=== PATIENT | male | born 1980 ===

== ENCOUNTER 2018-04-01 17:15 | Inpatient (IN) | payer MEDICAID ==
[2018-04-01] MEDS ORDERED: Tdap Vaccine 0.5 ml Vial (10-64 yrs) IM ONE ×2 (18:19→20:42)
[2018-04-01] MEDS ORDERED: ceFAZolin 1 GM in Sodium Chloride 0.9% 100 ML IVPB ONE (18:19)
[2018-04-01] MEDS ORDERED: Vancomycin 1 g Inj ONE (18:48)
--- NOTE | 2018-04-01 18:48 | ED PDOC ---
HPI: Skin/Bite Injury Time Seen by Provider: 04/01/18 18:14 Chief Complaint (Nursing): Abnormal Skin Integrity Chief Complaint (Provider): Bug Bite History Per: Patient History/Exam Limitations: no limitations Onset/Duration Of Symptoms: Days Current Symptoms Are (Timing): Still Present Location Of Injury: Right: Knee Quality Of Symptoms: Draining Additional Complaint(s): 38 year old female presents to the ER for an evaluation of a bug bite onset 3 days ago. She notes of the bite on the front of her knee. Also reports of discharge from the knee and mild erythema. Denies fever or chills. PMD: Dr Bernal Past Medical History Reviewed: Historical Data, Nursing Documentation, Vital Signs Vital Signs: Last Vital Signs Temp 99.2 F 04/01/18 17:46 Pulse 84 04/01/18 17:46 Resp 16 04/01/18 17:46 BP 144/91 H 04/01/18 17:46 Pulse Ox 98 04/01/18 17:46 - Medical History PMH: No Chronic Diseases - Family History Family History: States: Unknown Family Hx - Social History Current smoker - smoking cessation education provided: No Alcohol: None Drugs: Denies - Allergies Allergies/Adverse Reactions: Allergies Allergy/AdvReac Type Severity Reaction Status Date / Time No Known Allergies Allergy Verified 04/01/18 17:46 Review of Systems Constitutional: Negative for: Fever, Chills Skin: Positive for: Other (bug bite on right knee) Physical Exam - Reviewed Nursing Documentation Reviewed: Yes Vital Signs Reviewed: Yes - Physical Exam Appears: Positive for: Non-toxic, No Acute Distress Head Exam: Positive for: ATRAUMATIC, NORMAL INSPECTION, NORMOCEPHALIC Skin: Positive for: Normal Color, Warm, Dry. Negative for: Rash Extremity: Positive for: Other (2cm open wound and mild erythema noted on right knee to foot ) Neurologic/Psych: Positive for: Alert, Oriented (x3). Negative for: M otor/Sensory Deficits - Laboratory Results Result Diagrams: 04/01/18 18:35 04/01/18 18:35 - ECG O2 Sat by Pulse Oximetry: 98 (RA) Pulse Ox Interpretation: Normal - Progress ED Course And Treament: VANCOMYCIN 1 GM IV ANCEF 1 GM IV D/W DR. GARLAND WHO REQUESTS ID CONSULT DR. SCHULTE. XRY OF KNEE RIGHT : WNL Medical Decision Making Medical Decision Making: Time: 1818 Initial Plan: Venous Blood Gas Shock Panel CMP CBC w/ Differential Ancef 1gm Adacel 0.5ml IM Vancomycin Inj Blood Culture Wound Culture Reevaluation Scribe Attestation: Documented by Zak Tate, acting as a scribe for Kimi Vanegas PA-C Provider Scribe Attestation: All medical record entries made by the Scribe were at my direction and personally dictated by me. I have reviewed the chart and agree that the record accurately reflects my personal performance of the history, physical exam, medical decision making, and the department course for this patient. I have also personally directed, reviewed, and agree with the discharge instructions and disposition. Disposition - Clinical Impression Clinical Impression: Cellulitis of right leg - Patient ED Disposition Is Patient to be Admitted: Yes - Disposition Disposition Time: 19:59 Condition: FAIR - Pt Status Changed To: Hospital Disposition Of: Inpatient - Admit Certification Admit to Inpatient:: After my assessment, the patient will require hospitalization for at least two midnights. This is because of the severity of symptoms shown, intensity of services needed, and/or the medical risk in this patient being treated as an outpatient.
[2018-04-01 19:00] LABS: VENOUS BLOOD GAS BASE EXCESS 2.1 mmol/L (0.0-2.0); VENOUS BLOOD GAS PCO2 52 mmHg (40-60); VENOUS BLOOD GAS PO2 16 mm/Hg (30-55); VENOUS BLOOD PH 7.35 (7.32-7.43)
[2018-04-01 19:01] LABS: BASO # 0.1 K/uL (0.0-0.2); BASO % 0.6 % (0.0-2.0); EOS # 0.4 K/uL (0.0-0.7); EOS % 2.5 % (0.0-4.0); LYMPH # 1.8 K/uL (1.0-4.3); LYMPH % 11.2 % (20.0-40.0); MEAN CELL VOLUME 91.5 fl (80.0-94.0); MEAN CORPUSCULAR HEMOGLOBIN 29.8 pg (27.0-31.0); MEAN CORPUSCULAR HGB CONC 32.5 g/dL (33.0-37.0); MEAN PLATELET VOLUME 7.8 fl (7.2-11.7); MONO # 1.2 K/uL (0.0-0.8); MONO % 7.3 % (0.0-10.0); NEUT # 12.5 K/uL (1.8-7.0); NEUT % 78.4 % (50.0-75.0); RBC 4.38 Mil/uL (4.40-5.90); RED CELL DISTRIBUTION WIDTH 13.4 % (11.5-14.5)
[2018-04-01 19:09] LABS: ALB/GLOB RATIO 1.1 (1.0-2.1); ALBUMIN 4.2 g/dL (3.5-5.0); ALT/SGPT 29 U/L (21-72); AST/SGOT 46 U/L (17-59); BLOOD UREA NITROGEN 13 mg/dl (9-20); CALCIUM 8.8 mg/dL (8.4-10.2); GFR NON-AFRICAN AMERICAN > 60
[2018-04-02] MEDS: ceFAZolin 1 GM in Sodium Chloride 0.9% 100 ML IVPB SCH ×3 (01:58→17:51)
[2018-04-02 07:14] LABS: HEMOGLOBIN 12.9 g/dL (12.0-18.0); MEAN CELL VOLUME 92.5 fl (80.0-94.0); MEAN CORPUSCULAR HEMOGLOBIN 29.5 pg (27.0-31.0); MEAN CORPUSCULAR HGB CONC 31.9 g/dL (33.0-37.0); RBC 4.36 Mil/uL (4.40-5.90); RED CELL DISTRIBUTION WIDTH 13.4 % (11.5-14.5); WHITE BLOOD COUNT 15.1 K/uL (4.8-10.8)
[2018-04-02 07:28] LABS: ALB/GLOB RATIO 1.1 (1.0-2.1); ALBUMIN 3.8 g/dL (3.5-5.0); ALT/SGPT 29 U/L (21-72); AST/SGOT 31 U/L (17-59); BLOOD UREA NITROGEN 8 mg/dl (9-20); CALCIUM 8.2 mg/dL (8.4-10.2); GFR NON-AFRICAN AMERICAN > 60
[2018-04-02] MEDS ORDERED: cefTRIAXone (Rocephin) 1 gm Inj ONE (09:22)
[2018-04-02] MEDS ORDERED: Gadodiamide 287 MG/ML VIAL (15ML) IV ONE (10:24)
--- NOTE | 2018-04-02 10:51 | RAD ---
Date of service: 04/01/2018 PROCEDURE: Right Knee Radiographs. HISTORY: knee cellulitis COMPARISON: None. FINDINGS: BONES: Bone alignment and mineralization are normal. There is no acute displaced fracture or bone destruction. JOINTS: Normal. No osteoarthritis. JOINT EFFUSION: There is a small suprapatellar joint effusion. OTHER FINDINGS: There is mild prepatellar soft tissue swelling and subcutaneous edema. IMPRESSION: No acute fracture or bone destruction.
[2018-04-02] MEDS ORDERED: Vancomycin 1 g Inj ONE ×2 (12:30→21:47)
--- NOTE | 2018-04-02 13:56 | CP.PCM.HP ---
<Devyn Paul - Last Filed: 04/02/18 13:57> History of Present Illness - History of Present Illness History of Present Illness: 38 y/o M with NO PMHx is admitted for right lower leg cellulitis. Pt reports having a bug bite on his R knee 3 days ago and since then redness has been spreading. The initial lesion became swollen with yellowish discharge coming out. No ill contacts. No recent travel. Pt denies fever, chills, sweats, chest pain, N/V/D or dizziness. --Pt was yony dnexamined with Dr Campbell by bedside today. Pt reported feeling well, lesion is painless but bothersome. Pt remained afebrile, tolerating PO with NO acute events overnight. PMD: Dr Bernal PMHx: denied PSHx: denied FHx: NC SHx: Pt smokes 4 cigarettes per day. alcohol socially and NO rec drugs. Present on Admission - Present on Admission Any Indicators Present on Admission: No Review of Systems - Constitutional Constitutional: absent: Chills, Fever - EENT Eyes: absent: Blurred Vision Nose/Mouth/Throat: absent: Nasal Congestion, Nasal Discharge, Odynophagia, Sore Throat, Neck Pain, Neck Mass - Cardiovascular Cardiovascular: absent: Chest Pain, Chest Pain at Rest - Respiratory Respiratory: absent: Dyspnea, Hemoptysis, Dyspnea on Exertion - Gastrointestinal Gastrointestinal: absent: Abdominal Pain, Nausea, Vomiting - Genitourinary Genitourinary: absent: Dysuria, Flank Pain, Hematuria - Integumentary Integumentary: Rash Past Patient History - Past Social History Alcohol: None Drugs: Denies - PSYCHIATRIC Hx Substance Use: No - SURGICAL HISTORY Hx Surgeries: Yes Other/Comment: breast implants - ANESTHESIA Hx Anesthesia: Yes Hx Anesthesia Reactions: No Hx Malignant Hyperthermia: No Meds Allergies/Adverse Reactions: Allergies Allergy/AdvReac Type Severity Reaction Status Date / Time No Known Allergies Allergy Verified 04/01/18 17:46 Physical Exam - Constitutional Appears: No Acute Distress - Head Exam Head Exam: ATRAUMATIC, NORMAL INSPECTION - Eye Exam Eye Exam: EOMI - ENT Exam ENT Exam: Mucous Membranes Moist - Neck Exam Neck exam: Positive for: Full Rom. Negative for: Lymphadenopathy, Meningismus - Respiratory Exam Respiratory Exam: NORMAL BREATHING PATTERN. absent: Rales, Rhonchi, Wheezes - Cardiovascular Exam Cardiovascular Exam: REGULAR RHYTHM, +S1, +S2 - GI/Abdominal Exam GI & Abdominal Exam: Normal Bowel Sounds, Soft. absent: Distended, Guarding, Tenderness - Extremities Exam Extremities exam: Positive for: full ROM, normal inspection. Negative for: calf tenderness, joint swelling - Back Exam Back exam: NORMAL INSPECTION. absent: CVA tenderness (L), CVA tenderness (R) - Neurological Exam Neurological exam: Alert, Oriented x3 - Skin Additional comments: Presence of a mildly tender ~2cm diameter open wound with yellowish discharge and erythema around and extending inferiorly to right foot. Results - Vital Signs Recent Vital Signs: Last Vital Signs Temp 98 F 04/02/18 09:20 Pulse 85 04/02/18 09:20 Resp 18 04/02/18 09:20 BP 125/87 04/02/18 09:20 Pulse Ox 100 04/02/18 02:44 - Labs Result Diagrams: 04/02/18 06:00 04/02/18 06:00 Labs: Laboratory Results - last 24 hr 04/01/18 04/01/18 04/01/18 18:35 18:35 18:56 WBC 16.0 H RBC 4.38 L Hgb 13.0 Hct 40.1 MCV 91.5 MCH 29.8 MCHC 32.5 L RDW 13.4 Plt Count 313 MPV 7.8 Neut % (Auto) 78.4 H Lymph % (Auto) 11.2 L [place] % (Auto) 7.3 Eos % (Auto) 2.5 Baso % (Auto) 0.6 Neut # (Auto) 12.5 H Lymph # (Auto) 1.8 [place] # (Auto) 1.2 H Eos # (Auto) 0.4 Baso # (Auto) 0.1 pO2 16 L VBG pH 7.35 VBG pCO2 52 VBG HCO3 24.4 VBG Total CO2 30.3 H VBG O2 Sat (Calc) 23.9 L VBG Base Excess 2.1 H VBG Potassium 3.8 Glucose 104 Lactate 1.6 FiO2 21.0 Sodium 141 137.0 Potassium 4.0 Chloride 104 103.0 Carbon Dioxide 27 Anion Gap 14 BUN 13 Creatinine 0.9 Est GFR ( Amer) > 60 Est GFR (Non-Af Amer) > 60 Random Glucose 104 Calcium 8.8 Total Bilirubin 0.4 AST 46 ALT 29 Alkaline Phosphatase 64 Total Protein 7.9 Albumin 4.2 Globulin 3.7 Albumin/Globulin Ratio 1.1 Venous Blood Potassium 3.8 04/02/18 04/02/18 06:00 06:00 WBC 15.1 H RBC 4.36 L Hgb 12.9 Hct 40.4 MCV 92.5 MCH 29.5 MCHC 31.9 L RDW 13.4 Plt Count 301 MPV Neut % (Auto) Lymph % (Auto) [place] % (Auto) Eos % (Auto) Baso % (Auto) Neut # (Auto) Lymph # (Auto) [place] # (Auto) Eos # (Auto) Baso # (Auto) pO2 VBG pH VBG pCO2 VBG HCO3 VBG Total CO2 VBG O2 Sat (Calc) VBG Base Excess VBG Potassium Glucose Lactate FiO2 Sodium 139 Potassium 3.5 L Chloride 107 Carbon Dioxide 23 Anion Gap 13 BUN 8 L Creatinine 0.7 L Est GFR ( Amer) > 60 Est GFR (Non-Af Amer) > 60 Random Glucose 109 Calcium 8.2 L Total Bilirubin 0.6 AST 31 ALT 29 Alkaline Phosphatase 62 Total Protein 7.2 Albumin 3.8 Globulin 3.4 Albumin/Globulin Ratio 1.1 Venous Blood Potassium Assessment & Plan - Assessment and Plan (Free Text) Assessment: 38 y/o M is admitted for evaluation and management of R knee abscess and R lower leg cellulitis. PLAN: --Stable --Vanco was administered. Will add Zosyn for complete empiric therapy. --MRI of Knee since infection could be affecting bone structures. --ID consult, Dr Sanders. --Management as ordered. Case discussed with Dr Campbell. Ottoniel PGY-2. - Date & Time Date: 04/02/18 Time: 08:00 <Nayan Campbell - Last Filed: 04/06/18 07:03> Results - Vital Signs Recent Vital Signs: Last Vital Signs Temp 97.9 F 04/05/18 23:52 Pulse 87 04/05/18 23:52 Resp 18 04/05/18 23:52 BP 142/90 04/05/18 23:52 Pulse Ox 99 04/05/18 23:52 - Labs Result Diagrams: 04/05/18 05:20 04/05/18 05:20 Assessment & Plan - Assessment and Plan (Free Text) Assessment: Patient was personally seen and examined by me in rounds with residents. Available labs and diagnostic data reviewed. Case, Patient's condition and management plan discussed with residents in rounds. Agree with resident's progress note. Plan: As ordered.
--- NOTE | 2018-04-02 16:27 | MRI ---
Date of service: 04/02/2018 PROCEDURE: MRI Right Knee Without AND With Contrast HISTORY: PAIN. COMPARISON: None available. TECHNIQUE: Multiecho multiplanar sequences were performed through the right knee. FINDINGS: ANTERIOR CRUCIATE LIGAMENT:: Likely sympathetic edema rather than sprain or partial tear. POSTERIOR CRUCIATE LIGAMENT:: No intrinsic signal abnormality identified. MEDIAL MENISCUS:: No articular tear identified. Limited degenerative intrameniscal signal change present primarily the body and posterior horn. LATERAL MENISCUS:: No articular tear identified. Minimal degenerative intrameniscal signal anterior and posterior horns. MEDIAL COLLATERAL LIGAMENT:: No intrinsic signal abnormality identified. LATERAL COLLATERAL LIGAMENT COMPLEX:: No intrinsic signal abnormality identified. QUADRICEPS TENDON:: No intrinsic signal abnormality identified. PATELLAR TENDON:: Limited tendinosis suggested proximally, given inhomogeneous signal changes without acute tear. CARTILAGE:: Limited inhomogeneous signal at the patellar cartilage suggests [id number] chondromalacia with lesser similar changes at the medial and lateral femorotibial compartments. JOINT FLUID:: Trace suprapatellar bursa effusion is suggested no significant effusions at the medial or lateral femorotibial compartments. OSSEOUS STRUCTURES:: Trace edema is seen at the lateral tibial plateau with subtle enhancement appreciated anteriorly in a pattern suspicious for potential osteomyelitis. Remaining narrow signal is otherwise normal throughout the knee. OTHER FINDINGS: Extensive subcutaneous edema is seen anteriorly as well as laterally and medially with the posterior knee subcutaneous fat nearly unaffected. IMPRESSION: 1. Cellulitis pattern seen affecting the subcutaneous fat predominately anteriorly as well as medially and laterally suspicious edema and trace enhancement at the anterior portion of the lateral tibial plateau suspicious for osteomyelitis. Limited suprapatellar bursa effusion noted. 2. Likely sympathetic edema is seen related to the anterior cruciate ligament without full-thickness tear identified. Differential diagnosis would be sprain or partial tear, neither of which is favored. 3. No articular meniscal tear although degenerative intrameniscal signal change are identified.
[2018-04-02] MEDS ORDERED: ceFAZolin IV 1 gm in Dextrose 0 GM/0 ML BAG IVPB ONE (17:25)
[2018-04-02] MEDS ORDERED: Piperacillin/Tazobact 3.375 GM in Sodium Chloride 0.9% 100 ML IVPB SCH (21:00)
[2018-04-02] MEDS ORDERED: Piperacillin/Tazobact 3.375 gm Inj IVPB ONE (21:28)
[2018-04-03] MEDS: ceFAZolin 1 GM in Sodium Chloride 0.9% 100 ML IVPB SCH ×2 (01:34→10:18)
[2018-04-03] MEDS ORDERED: Influenza Vaccine (5 YR UP)/PF 60 MCG/0.5 ML SYR IM ONE (09:00)
[2018-04-03] MEDS ORDERED: Pneumococcal 23-Valent Vaccine IM ONE (09:00)
--- NOTE | 2018-04-03 12:40 | CP.PCM.CON ---
History of Present Illness - History of Present Illness History of Present Illness: 38 year old female presents to the ER for an evaluation of a bug bite onset 3 days ago. She notes of the bite on the front of her knee. Also reports of discharge from the knee and mild erythema. Denies fever or chills. wound growing MRSA Review of Systems - Review of Systems All systems: reviewed and no additional remarkable complaints except - Constitutional Constitutional: As Per HPI - EENT Eyes: absent: As Per HPI, Blind Spots, Blurred Vision, Change in Vision, Decreased Night Vision, Diplopia, Discharge, Dry Eye, Exophthalmos, Floaters, Irritation, Itchy Eyes, Loss of Peripheral Vision, Pain, Photophobia, Requires Corrective Lenses, Sees Flashes, Spots in Vision, Tunnel Vision, Other Visual Disturbances, Loss of Vision, Other Ears: absent: As Per HPI, Decreased Hearing, Ear Discharge, Ear Pain, Tinnitus, Abnormal Hearing, Disequilibrium, Dizziness, Other Nose/Mouth/Throat: absent: As Per HPI, Epistaxis, Nasal Congestion, Nasal Discharge, Nasal Obstruction, Nasal Trauma, Nose Pain, Post Nasal Drip, Sinus Pain, Sinus Pressure, Bleeding Gums, Change in Voice, Dental Pain, Dry Mouth, Dysphagia, Halitosis, Hoarsness, Lip Swelling, Mouth Lesions, Mouth Pain, Odynophagia, Sore Throat, Throat Swelling, Tongue Swelling, Facial Pain, Neck Pain, Neck Mass, Other - Cardiovascular Cardiovascular: absent: As Per HPI, Acrocyanosis, Chest Pain, Chest Pain at Rest, Chest Pain with Activity, Claudication, Diaphoresis, Dyspnea, Dyspnea on Exertion, Edema, Irregular Heart Rhythm, Pain Radiating to Arm/Neck/Jaw, Leg Edema, Leg Ulcers, Lightheadedness, Orthopnea, Palpitations, Paroxysmal Noc turnal Dyspnea, Pedal Edema, Radiating Pain, Rapid Heart Rate, Slow Heart Rate, Syncope, Other - Respiratory Respiratory: absent: As Per HPI, Cough, Dyspnea, Hemoptysis, Dyspnea on Exertion, Wheezing, Snoring, Stridor, Pain on Inspiration, Chest Congestion, Exc essive Mucous Production, Change in Mucous Color, Pain with Coughing, Other - Gastrointestinal Gastrointestinal: absent: As Per HPI, Abdominal Pain, Belching, Bloating, Change in Bowel Habits, Change in Stool Character, Coffee Ground Emesis, Constipation, Cramping, Diarrhea, Dyspepsia, Dysphagia, Early Satiety, Excessive Flatus, Fecal Incontinence, Heartburn, Hematemesis, Hematochezia, Loose Stools, Melena, Nausea, Odynophagia, Temesmus, Vomiting, Other - Genitourinary Genitourinary: absent: As Per HPI, Change in Urinary Stream, Difficulty Urinating, Dysuria, Flank Pain, Hematuria, Pyuria, Nocturia, Urinary Inconti nence, Urinary Frequency, Urinary Hesitance, Urinary Urgency, Voiding Freq/Small Amts, Freq UTI, Hx Renal/Bladder Calculi, Hx /Renal Surgery, Bladder Distension, Other - Musculoskeletal Musculoskeletal: As Per HPI - Integumentary Integumentary: As Per HPI, Skin Pain, Wounds - Neurological Neurological: absent: As Per HPI, Abnormal Gait, Abnormal Hearing, Abnormal Movements, Abnormal Speech, Behavioral Changes, Burning Sensations, Confusion, Convulsions, Disequilibrium, Dizziness, Numbness, Focal Weakness, Frequent Falls, Headaches, Lack of Coordination, Loss of Vision, Memory Loss, Paresthesias, Radicular Pain, Restless Legs, Sensory Deficit, Syncope, Tingling, Tremor, Vertigo, Weakness, Other Visual Disturbances, Other - Psychiatric Psychiatric: absent: As Per HPI, Abnormal Sleep Pattern, Anhedonia, Anxiety, Auditory Hallucinations, Behavioral Changes, Change in Appetite, Change in Libido, Confusion, Depression, Difficulty Concentrating, Hallucinations, Homicidal Ideation, Hopelessness, Irritability, Memory Loss, Mood Swings, Panic Attacks, Paranoia, Suicidal Ideation, Visual Hallucinations, Tactile Hallucinations, Other - Endocrine Endocrine: absent: As Per HPI, Change in Body Appearance, Change in Libido, Cold Intolorance, Deepening of Voice, Excessive Sweating, Fatigue, Flushing, Heat Intolorance, Increase in Ring/Shoe/Hat Size, Palpitations, Polydipsia, Polyphagia, Polyuria, Other - Hematologic/Lymphatic Hematologic: absent: As Per HPI, Easy Bleeding, Easy Bruising, Lymphadenopathy, Other Past Patient History - Past Medical History & Family History Past Medical History?: No - Past Social History Smoking Status: Light Smoker < 10 Cigarettes Daily - CARDIAC Hx Cardiac Disorders: No - PULMONARY Hx Respiratory Disorders: No - NEUROLOGICAL Hx Neurological Disorder: No - HEENT Hx HEENT Problems: No - RENAL Hx Chronic Kidney Disease: No - ENDOCRINE/METABOLIC Hx Endocrine Disorders: No - HEMATOLOGICAL/ONCOLOGICAL Hx Blood Disorders: No - INTEGUMENTARY Hx Dermatological Problems: No - MUSCULOSKELETAL/RHEUMATOLOGICAL Hx Musculoskeletal Disorders: No Hx Falls: No - GENITOURINARY/GYNECOLOGICAL Hx Genitourinary Disorders: No - PSYCHIATRIC Hx Psychophysiologic Disorder: No Hx Substance Use: No - SURGICAL HISTORY Hx Surgeries: Yes Other/Comment: breast implants - ANESTHESIA Hx Anesthesia: Yes Hx Anesthesia Reactions: No Hx Malignant Hyperthermia: No Meds Allergies/Adverse Reactions: Allergies Allergy/AdvReac Type Severity Reaction Status Date / Time No Known Allergies Allergy Verified 04/01/18 17:46 - Medications Medications: Current Medications Acetaminophen (Tylenol 325mg Tab) 650 mg PO Q6 PRN PRN Reason: Fever >100.4 F Acetaminophen (Tylenol 325mg Tab) 650 mg PO Q6 PRN PRN Reason: Pain, Mild (1-3) Vancomycin HCl 1 gm/ Sodium (Chloride) 250 mls @ 166.667 mls/hr IVPB Q12 [facility]; Protocol Last Admin: 04/03/18 10:18 Dose: 166.667 mls/hr Piperacillin Sod/Tazobactam (Sod 3.375 gm/ Sodium Chloride) 100 mls @ 100 mls/hr IVPB Q8 GREG; Protocol Ibuprofen (Motrin Tab) 600 mg PO Q6 PRN PRN Reason: Pain, moderate (4-7) Ketorolac Tromethamine (Toradol) 30 mg IVP Q6 PRN PRN Reason: Pain, severe (8-10) Nicotine (Nicoderm Cq) 1 patch TD DAILY [facility] Last Admin: 04/03/18 10:24 Dose: 1 patch Physical Exam - Constitutional Appears: Non-toxic, No Acute Distress, Chronically Ill - Head Exam Head Exam: NORMOCEPHALIC - Eye Exam Eye Exam: absent: Scleral icterus - ENT Exam ENT Exam: absent: Mucous Membranes Dry - Neck Exam Neck exam: Negative for: Lymphadenopathy - Respiratory Exam Respiratory Exam: Decreased Breath Sounds - Cardiovascular Exam Cardiovascular Exam: REGULAR RHYTHM - GI/Abdominal Exam GI & Abdominal Exam: Diminished Bowel Sounds, Soft - Rectal Exam Rectal Exam: Deferred - Exam Exam: NORMAL INSPECTION - Extremities Exam Extremities exam: Negative for: pedal edema Additional comments: abscess right knee with pus - Back Exam Back exam: absent: CVA tenderness (L), CVA tenderness (R) - Neurological Exam Neurological exam: Alert, CN II-XII Intact, Oriented x3, Reflexes Normal - Psychiatric Exam Psychiatric exam: Normal Mood Results - Vital Signs Recent Vital Signs: Last Vital Signs Temp 98 F 04/03/18 08:21 Pulse 73 04/03/18 08:21 Resp 20 04/03/18 08:21 BP 124/74 04/03/18 08:21 Pulse Ox 100 04/03/18 08:21 - Labs Result Diagrams: 04/02/18 06:00 04/02/18 06:00 Labs: Laboratory Results - last 24 hr 04/02/18 06:00 Procalcitonin < 0.05 L Assessment & Plan (1) Cellulitis of right leg Status: Acute - Assessment and Plan (Free Text) Assessment: abscess may need to be drained cont IV Swapna chance now will check titers d/c on po clinda when stable
[2018-04-03 12:46] LABS: BASO # 0.2 K/uL (0.0-0.2); BASO % 1.4 % (0.0-2.0); EOS # 0.8 K/uL (0.0-0.7); EOS % 7.1 % (0.0-4.0); HEMOGLOBIN 12.9 g/dL (12.0-18.0); LYMPH # 2.3 K/uL (1.0-4.3); LYMPH % 19.6 % (20.0-40.0); MEAN CELL VOLUME 93.7 fl (80.0-94.0); MEAN CORPUSCULAR HEMOGLOBIN 31.1 pg (27.0-31.0); MEAN CORPUSCULAR HGB CONC 33.2 g/dL (33.0-37.0); MEAN PLATELET VOLUME 7.3 fl (7.2-11.7); MONO # 0.9 K/uL (0.0-0.8); MONO % 7.4 % (0.0-10.0); NEUT # 7.6 K/uL (1.8-7.0); NEUT % 64.5 % (50.0-75.0); RBC 4.16 Mil/uL (4.40-5.90); WHITE BLOOD COUNT 11.7 K/uL (4.8-10.8)
[2018-04-03 13:14] LABS: ALB/GLOB RATIO 1.1 (1.0-2.1); ALBUMIN 3.8 g/dL (3.5-5.0); ALT/SGPT 26 U/L (21-72); AST/SGOT 24 U/L (17-59); BLOOD UREA NITROGEN 11 mg/dl (9-20); GFR NON-AFRICAN AMERICAN > 60
[2018-04-03] MEDS ORDERED: Piperacillin/Tazobact 3.375 GM in Sodium Chloride 0.9% 100 ML IVPB SCH (17:00)
--- NOTE | 2018-04-03 17:11 | CP.PCM.PN ---
<Devyn Paul - Last Filed: 04/03/18 17:09> Subjective - Date & Time of Evaluation Date of Evaluation: 04/03/18 Time of Evaluation: 10:37 - Subjective Subjective: 38 y/o M was seen and examined by bedside with Dr Duffy. Pt reports feeling well, believes that R knee wound is suppurating more and has not detected any changes in redness. Pt afebrile, tolerating Po with No acute events overnight. Objective - Vital Signs/Intake and Output Vital Signs (last 24 hours): Temp Pulse Resp BP Pulse Ox 97.6 F 77 18 133/90 100 04/03/18 16:32 04/03/18 16:32 04/03/18 16:32 04/03/18 16:32 04/03/18 16:32 - Medications Medications: Current Medications Acetaminophen (Tylenol 325mg Tab) 650 mg PO Q6 PRN PRN Reason: Fever >100.4 F Acetaminophen (Tylenol 325mg Tab) 650 mg PO Q6 PRN PRN Reason: Pain, Mild (1-3) Vancomycin HCl 1 gm/ Sodium (Chloride) 250 mls @ 125 mls/hr IVPB Q8H [facility]; Protocol Last Admin: 04/03/18 16:07 Dose: 125 mls/hr Ibuprofen (Motrin Tab) 600 mg PO Q6 PRN PRN Reason: Pain, moderate (4-7) Ketorolac Tromethamine (Toradol) 30 mg IVP Q6 PRN PRN Reason: Pain, severe (8-10) Nicotine (Nicoderm Cq) 1 patch TD DAILY [facility] Last Admin: 04/03/18 10:24 Dose: 1 patch - Labs Labs: 04/03/18 12:41 04/03/18 12:41 - Additional Findings Additional findings: - Constitutional Appears: No Acute Distress - Head Exam Head Exam: ATRAUMATIC, NORMAL INSPECTION - Eye Exam Eye Exam: EOMI - ENT Exam ENT Exam: Mucous Membranes Moist - Neck Exam Neck exam: Positive for: Full Rom. Negative for: Lymphadenopathy, Meningismus - Respiratory Exam Respiratory Exam: NORMAL BREATHING PATTERN. absent: Rales, Rhonchi, Wheezes - Cardiovascular Exam Cardiovascular Exam: REGULAR RHYTHM, +S1, +S2 - GI/Abdominal Exam GI & Abdominal Exam: Normal Bowel Sounds, Soft. absent: Distended, Guarding, Tenderness - Extremities Exam Extremities exam: Positive for: full ROM, normal inspection. Negative for: calf tenderness, joint swelling - Back Exam Back exam: NORMAL INSPECTION. absent: CVA tenderness (L), CVA tenderness (R) - Neurological Exam Neurological exam: Alert, Oriented x3 - Skin Additional comments: Presence of a mildly tender ~2cm diameter open wound with yellowish discharge and erythema around and extending inferiorly to right foot. Assessment and Plan - Assessment and Plan (Free Text) Assessment: 38 y/o M is admitted for evaluation and management of R knee abscess and R lower leg cellulitis. -Wound Culture growing MRSA PLAN: --Stable, WBC trending down --Vancomycin 1gr Q8H. --MRI of Knee showed concern for osteomyelitis. --ID consult, Dr Sanders. --Management as ordered. Case discussed with Dr Clive Alcazar, PGY-2 <Diego Duffy - Last Filed: 04/09/18 07:35> Objective - Vital Signs/Intake and Output Vital Signs (last 24 hours): Temp Pulse Resp BP Pulse Ox 97.6 F 97 H 20 121/87 100 04/09/18 01:03 04/09/18 01:03 04/09/18 01:03 04/09/18 01:03 04/09/18 01:03 - Medications Medications: Current Medications Acetaminophen (Tylenol 325mg Tab) 650 mg PO Q6 PRN PRN Reason: Fever >100.4 F Acetaminophen (Tylenol 325mg Tab) 650 mg PO Q6 PRN PRN Reason: Pain, Mild (1-3) Vancomycin HCl 1 gm/ Sodium (Chloride) 250 mls @ 125 mls/hr IVPB Q8H [facility]; Protocol Last Admin: 04/09/18 03:34 Dose: 125 mls/hr Ibuprofen (Motrin Tab) 600 mg PO Q6 PRN PRN Reason: Pain, moderate (4-7) Ketorolac Tromethamine (Toradol) 30 mg IVP Q6 PRN PRN Reason: Pain, severe (8-10) Nicotine (Nicoderm Cq) 1 patch TD DAILY [facility] Last Admin: 04/08/18 09:00 Dose: 1 patch - Labs Labs: 04/08/18 10:24 04/08/18 10:24 Assessment and Plan (1) Abscess of right knee Status: Acute (2) Osteomyelitis of right tibia Status: Acute (3) Cellulitis of right leg Status: Resolved - Assessment and Plan (Free Text) Plan: I was present during evaluation and discussed with Dr Paul re plans of care and tx Diego Duffy M.D.
[2018-04-04 06:28] LABS: BASO # 0.1 K/uL (0.0-0.2); BASO % 0.6 % (0.0-2.0); EOS # 0.8 K/uL (0.0-0.7); EOS % 6.2 % (0.0-4.0); HEMOGLOBIN 13.1 g/dL (12.0-18.0); LYMPH # 1.9 K/uL (1.0-4.3); LYMPH % 14.7 % (20.0-40.0); MEAN CELL VOLUME 91.4 fl (80.0-94.0); MEAN CORPUSCULAR HEMOGLOBIN 29.9 pg (27.0-31.0); MEAN CORPUSCULAR HGB CONC 32.7 g/dL (33.0-37.0); MEAN PLATELET VOLUME 7.6 fl (7.2-11.7); MONO # 0.8 K/uL (0.0-0.8); MONO % 6.2 % (0.0-10.0); NEUT # 9.3 K/uL (1.8-7.0); NEUT % 72.3 % (50.0-75.0); NRBC % 0.1 % (0.0-0.0); RBC 4.39 Mil/uL (4.40-5.90); RED CELL DISTRIBUTION WIDTH 12.9 % (11.5-14.5); WHITE BLOOD COUNT 12.9 K/uL (4.8-10.8)
[2018-04-04 06:35] LABS: BLOOD UREA NITROGEN 9 mg/dl (9-20); CALCIUM 9.1 mg/dL (8.4-10.2); GFR NON-AFRICAN AMERICAN > 60
--- NOTE | 2018-04-04 16:21 | CP.PCM.PN ---
<Devyn Paul - Last Filed: 04/04/18 16:18> Subjective - Date & Time of Evaluation Date of Evaluation: 04/04/18 Time of Evaluation: 11:05 - Subjective Subjective: 38 y/o M was seen and examined by bedside with Dr Duffy. Pt reports feeling well, no complaints. Pt afebrile, tolerating Po with No acute events overnight. Objective - Vital Signs/Intake and Output Vital Signs (last 24 hours): Temp Pulse Resp BP Pulse Ox 97.1 F L 85 20 127/76 98 04/04/18 08:29 04/04/18 08:29 04/04/18 08:29 04/04/18 08:29 04/04/18 08:29 - Medications Medications: Current Medications Acetaminophen (Tylenol 325mg Tab) 650 mg PO Q6 PRN PRN Reason: Fever >100.4 F Acetaminophen (Tylenol 325mg Tab) 650 mg PO Q6 PRN PRN Reason: Pain, Mild (1-3) Vancomycin HCl 1 gm/ Sodium (Chloride) 250 mls @ 125 mls/hr IVPB Q8H [facility]; Protocol Last Admin: 04/04/18 06:48 Dose: 125 mls/hr Ibuprofen (Motrin Tab) 600 mg PO Q6 PRN PRN Reason: Pain, moderate (4-7) Ketorolac Tromethamine (Toradol) 30 mg IVP Q6 PRN PRN Reason: Pain, severe (8-10) Nicotine (Nicoderm Cq) 1 patch TD DAILY [facility] Last Admin: 04/04/18 09:15 Dose: 1 patch - Labs Labs: 04/04/18 04:35 04/04/18 04:35 - Additional Findings Additional findings: - Constitutional Appears: No Acute Distress - Head Exam Head Exam: ATRAUMATIC, NORMAL INSPECTION - Eye Exam Eye Exam: EOMI - ENT Exam ENT Exam: Mucous Membranes Moist - Neck Exam Neck exam: Positive for: Full Rom. Negative for: Lymphadenopathy, Meningismus - Respiratory Exam Respiratory Exam: NORMAL BREATHING PATTERN. absent: Rales, Rhonchi, Wheezes - Cardiovascular Exam Cardiovascular Exam: REGULAR RHYTHM, +S1, +S2 - GI/Abdominal Exam GI & Abdominal Exam: Normal Bowel Sounds, Soft. absent: Distended, Guarding, Tenderness - Extremities Exam Extremities exam: Positive for: full ROM, normal inspection. Negative for: calf tenderness, joint swelling - Back Exam Back exam: NORMAL INSPECTION. absent: CVA tenderness (L), CVA tenderness (R) - Neurological Exam Neurological exam: Alert, Oriented x3 - Skin Additional comments: Presence of a mildly tender ~2cm diameter open wound with yellowish discharge and erythema around and extending inferiorly to right foot. Erythema improving Assessment and Plan - Assessment and Plan (Free Text) Assessment: 38 y/o M is admitted for evaluation and management of R knee abscess and R lower leg cellulitis. -Wound Culture growing MRSA PLAN: --Stable, WBC still elevated --On IV Vancomycin 1gr Q8H. --MRI of Knee showed concern for osteomyelitis. --ID on board, Dr Sanders. --Orthopedic Surgery consult for drainage if possible. --Management as ordered. Case discussed with Dr Clive Alcazar, PGY-2 <Diego Duffy - Last Filed: 04/09/18 07:36> Objective - Vital Signs/Intake and Output Vital Signs (last 24 hours): Temp Pulse Resp BP Pulse Ox 97.6 F 97 H 20 121/87 100 04/09/18 01:03 04/09/18 01:03 04/09/18 01:03 04/09/18 01:03 04/09/18 01:03 - Medications Medications: Current Medications Acetaminophen (Tylenol 325mg Tab) 650 mg PO Q6 PRN PRN Reason: Fever >100.4 F Acetaminophen (Tylenol 325mg Tab) 650 mg PO Q6 PRN PRN Reason: Pain, Mild (1-3) Vancomycin HCl 1 gm/ Sodium (Chloride) 250 mls @ 125 mls/hr IVPB Q8H [facility]; Protocol Last Admin: 04/09/18 03:34 Dose: 125 mls/hr Ibuprofen (Motrin Tab) 600 mg PO Q6 PRN PRN Reason: Pain, moderate (4-7) Ketorolac Tromethamine (Toradol) 30 mg IVP Q6 PRN PRN Reason: Pain, severe (8-10) Nicotine (Nicoderm Cq) 1 patch TD DAILY [facility] Last Admin: 04/08/18 09:00 Dose: 1 patch - Labs Labs: 04/08/18 10:24 04/08/18 10:24 Assessment and Plan (1) Abscess of right knee Status: Acute (2) Osteomyelitis of right tibia Status: Acute (3) Cellulitis of right leg Status: Resolved - Assessment and Plan (Free Text) Plan: I was present during evaluation and discussed with Dr Paul re plans of care and mgt Diego Duffy M.D.
[2018-04-04] MEDS ORDERED: Povidone Iodine Topical 10% Sol ONE (19:03)
--- NOTE | 2018-04-04 19:21 | CP.PCM.PN ---
Subjective - Date & Time of Evaluation Date of Evaluation: 04/04/18 Time of Evaluation: 08:00 - Subjective Subjective: ? OM of knee- tibial plateau ortho on board cont iv vanco Objective - Vital Signs/Intake and Output Vital Signs (last 24 hours): Temp Pulse Resp BP Pulse Ox 98.1 F 96 H 18 137/83 100 04/04/18 17:19 04/04/18 17:19 04/04/18 17:19 04/04/18 17:19 04/04/18 17:19 - Medications Medications: Current Medications Acetaminophen (Tylenol 325mg Tab) 650 mg PO Q6 PRN PRN Reason: Fever >100.4 F Acetaminophen (Tylenol 325mg Tab) 650 mg PO Q6 PRN PRN Reason: Pain, Mild (1-3) Vancomycin HCl 1 gm/ Sodium (Chloride) 250 mls @ 125 mls/hr IVPB Q8H [facility]; Protocol Last Admin: 04/04/18 17:56 Dose: 125 mls/hr Ibuprofen (Motrin Tab) 600 mg PO Q6 PRN PRN Reason: Pain, moderate (4-7) Ketorolac Tromethamine (Toradol) 30 mg IVP Q6 PRN PRN Reason: Pain, severe (8-10) Nicotine (Nicoderm Cq) 1 patch TD DAILY [facility] Last Admin: 04/04/18 09:15 Dose: 1 patch - Labs Labs: 04/04/18 04:35 04/04/18 04:35 Assessment and Plan (1) Cellulitis of right leg Status: Acute
[2018-04-05 06:29] LABS: HEMOGLOBIN 13.9 g/dL (12.0-18.0); MEAN CELL VOLUME 93.2 fl (80.0-94.0); MEAN CORPUSCULAR HEMOGLOBIN 30.4 pg (27.0-31.0); MEAN CORPUSCULAR HGB CONC 32.6 g/dL (33.0-37.0); RBC 4.57 Mil/uL (4.40-5.90); WHITE BLOOD COUNT 11.6 K/uL (4.8-10.8)
[2018-04-05 06:59] LABS: BLOOD UREA NITROGEN 12 mg/dl (9-20); CALCIUM 9.2 mg/dL (8.4-10.2); GFR NON-AFRICAN AMERICAN > 60
--- NOTE | 2018-04-05 08:17 | CP.PCM.CON ---
History of Present Illness - History of Present Illness History of Present Illness: Orthopedic consultation Dr. Sanchez 38M complains of pain, redness, oozing from right knee x approx 1 week. He says he thought it was just a bug bite, but it continued to become more painful, swollen, and red despite neosporin. He came to ER 04/01, and was admitted and started on antibiotics. Patient denies any recent travel, trauma, falls. He says he never had infection like this before. He says it is less painful now than when he came to the ER and it is less swollen. He says it hurts to bend his knee but no increased pain when he puts pressure on his leg. Denies numbness/tingling. Denies drug abuse. Denies history of MRSA infections. Denies CP/SOB/dizziness/n/v. Review of Systems - Constitutional Constitutional: As Per HPI - Cardiovascular Cardiovascular: As Per HPI - Respiratory Respiratory: As Per HPI - Gastrointestinal Gastrointestinal: As Per HPI - Musculoskeletal Musculoskeletal: As Per HPI - Integumentary Integumentary: As Per HPI - Neurological Neurological: As Per HPI - Hematologic/Lymphatic Hematologic: As Per HPI Past Patient History - Past Medical History & Family History Past Medical History?: No Past Family History: Reviewed and not pertinent - Past Social History Smoking Status: Light Smoker < 10 Cigarettes Daily - CARDIAC Hx Cardiac Disorders: No - PULMONARY Hx Respiratory Disorders: No - NEUROLOGICAL Hx Neurological Disorder: No - HEENT Hx HEENT Problems: No - RENAL Hx Chronic Kidney Disease: No - ENDOCRINE/METABOLIC Hx Endocrine Disorders: No - HEMATOLOGICAL/ONCOLOGICAL Hx Blood Disorders: No - INTEGUMENTARY Hx Dermatological Problems: No - MUSCULOSKELETAL/RHEUMATOLOGICAL Hx Musculoskeletal Disorders: No Hx Falls: No - GENITOURINARY/GYNECOLOGICAL Hx Genitourinary Disorders: No - PSYCHIATRIC Hx Psychophysiologic Disorder: No Hx Substance Use: No - SURGICAL HISTORY Hx Surgeries: Yes Other/Comment: breast implants - ANESTHESIA Hx Anesthesia: Yes Hx Anesthesia Reactions: No Hx Malignant Hyperthermia: No Meds Allergies/Adverse Reactions: Allergies Allergy/AdvReac Type Severity Reaction Status Date / Time No Known Allergies Allergy Verified 04/01/18 17:46 - Medications Medications: Current Medications Acetaminophen (Tylenol 325mg Tab) 650 mg PO Q6 PRN PRN Reason: Fever >100.4 F Acetaminophen (Tylenol 325mg Tab) 650 mg PO Q6 PRN PRN Reason: Pain, Mild (1-3) Vancomycin HCl 1 gm/ Sodium (Chloride) 250 mls @ 125 mls/hr IVPB Q8H [facility]; Protocol Last Admin: 04/05/18 05:28 Dose: 125 mls/hr Ibuprofen (Motrin Tab) 600 mg PO Q6 PRN PRN Reason: Pain, moderate (4-7) Ketorolac Tromethamine (Toradol) 30 mg IVP Q6 PRN PRN Reason: Pain, severe (8-10) Nicotine (Nicoderm Cq) 1 patch TD DAILY [facility] Last Admin: 04/04/18 09:15 Dose: 1 patch Physical Exam - Constitutional Appears: Well, No Acute Distress - Head Exam Head Exam: ATRAUMATIC - Neck Exam Neck exam: Positive for: Full Rom, Normal Inspection - Respiratory Exam Respiratory Exam: NORMAL BREATHING PATTERN - Cardiovascular Exam Additional comments: +DP/PT pulses - Skin Skin Exam: Warm Additional comments: 2x2cm deep open wound to right knee over patellar tendon area. Surrounding erythema. Able to express tiny amount of pus, no palpable surrounding collection at this time. wound is deep, but no fascia/tendon visible. Appears bed of granulation tissue. Small amount serous drainage from open wound Active flexion 0-80 degrees without pain. Small joint effusion, knee joint not warm or red. TTP prox tibia. Calves soft NT neg homans, +ROM ankle/toes without pain. Sensation intact. Results - Vital Signs Recent Vital Signs: Last Vital Signs Temp 98.6 F 04/05/18 00:32 Pulse 111 H 04/05/18 00:32 Resp 18 04/05/18 00:32 BP 140/81 04/05/18 00:32 Pulse Ox 99 04/05/18 00:32 - Labs Result Diagrams: 04/05/18 05:20 04/05/18 05:20 Labs: Laboratory Results - last 24 hr 04/04/18 04/04/18 04/05/18 04:35 04:35 05:20 WBC 11.6 H RBC 4.57 Hgb 13.9 Hct 42.5 MCV 93.2 MCH 30.4 MCHC 32.6 L RDW 13.0 Plt Count 411 H ESR 43 H Sodium Potassium Chloride Carbon Dioxide Anion Gap BUN Creatinine Est GFR ( Amer) Est GFR (Non-Af Amer) Random Glucose Calcium HIV 1&2 Antibody Screen Negative 04/05/18 05:20 WBC RBC Hgb Hct MCV MCH MCHC RDW Plt Count ESR Sodium 141 Potassium 4.0 Chloride 104 Carbon Dioxide 27 Anion Gap 14 BUN 12 Creatinine 0.8 Est GFR ( Amer) > 60 Est GFR (Non-Af Amer) > 60 Random Glucose 115 H Calcium 9.2 HIV 1&2 Antibody Screen - Impressions Impression: Accession No. : [id number] Patient Name / ID : BONNY DONOHUE P / [id number] Exam Date : 04/02/2018 10:40:37 ( Approved ) Study Comment : Sex / Age : M / 38Y Creator : Zoltan Jenkins MD Dictator : Zoltan Jenkins MD Service Shop Foreman : Information Systems Security Analyst : Zoltan Jenkins MD Approver2 : Report Date : 04/02/2018 15:08:21 My Comment : Date of service: 04/02/2018 PROCEDURE: MRI Right Knee Without AND With Contrast HISTORY: PAIN. COMPARISON: None available. TECHNIQUE: Multiecho multiplanar sequences were performed through the right knee. FINDINGS: ANTERIOR CRUCIATE LIGAMENT:: Likely sympathetic edema rather than sprain or partial tear. POSTERIOR CRUCIATE LIGAMENT:: No intrinsic signal abnormality identified. MEDIAL MENISCUS:: No articular tear identified. Limited degenerative intrameniscal signal change present primarily the body and posterior horn. LATERAL MENISCUS:: No articular tear identified. Minimal degenerative intrameniscal signal anterior and posterior horns. MEDIAL COLLATERAL LIGAMENT:: No intrinsic signal abnormality identified. LATERAL COLLATERAL LIGAMENT COMPLEX:: No intrinsic signal abnormality identified. QUADRICEPS TENDON:: No intrinsic signal abnormality identified. PATELLAR TENDON:: Limited tendinosis suggested proximally, given inhomogeneous signal changes without acute tear. CARTILAGE:: Limited inhomogeneous signal at the patellar cartilage suggests [id number] chondromalacia with lesser similar changes at the medial and lateral femorotibial compartments. JOINT FLUID:: Trace suprapatellar bursa effusion is suggested no significant effusions at the medial or lateral femorotibial compartments. OSSEOUS STRUCTURES:: Trace edema is seen at the lateral tibial plateau with subtle enhancement saadia reciated anteriorly in a pattern suspicious for potential osteomyelitis. Remaining narrow signal is otherwise normal throughout the knee. OTHER FINDINGS: Extensive subcutaneous edema is seen anteriorly as well as laterally and medially with the posterior knee subcutaneous fat nearly unaffected. IMPRESSION: 1. Cellulitis pattern seen affecting the subcutaneous fat predominately anteriorly as well as medially and laterally suspicious edema and trace enhancement at the anterior portion of the lateral tibial plateau suspicious for osteomyelitis. Limited suprapatellar bursa effusion noted. 2. Likely sympathetic edema is seen related to the anterior cruciate ligament without full-thickness tear identified. Differential diagnosis would be sprain or partial tear, neither of which is favored. 3. No articular meniscal tear although degenerative intrameniscal signal change are identified. Assessment & Plan (1) Abscess of right knee Assessment and Plan: spontaneously drained no clinical evidence of abscess at this time small joint effusion only, not obvious for communication to joint at this time, will consider aspiration if clinically indicated after cellulitis completely resolves (as to not seed joint) responding to antibiotics local wound care needed, manager organizational and plastic surgery consult per Dr. Sanchez d/w Dr. Sanchez, agrees with above, will follow Status: Acute (2) Cellulitis of right leg Status: Acute (3) Osteomyelitis of right tibia Status: Acute
--- NOTE | 2018-04-05 14:01 | CP.PCM.PN ---
Subjective - Date & Time of Evaluation Date of Evaluation: 04/05/18 Time of Evaluation: 09:00 - Subjective Subjective: iv rx to continue for MRSA Cellulitis pattern seen affecting the subcutaneous fat predominately anteriorly as well as medially and laterally suspicious edema and trace enhancement at the anterior portion of the lateral tibial plateau suspicious for osteomyelitis. Limited suprapatellar bursa effusion noted. Objective - Vital Signs/Intake and Output Vital Signs (last 24 hours): Temp Pulse Resp BP Pulse Ox 98.1 F 114 H 20 124/83 100 04/05/18 08:37 04/05/18 08:37 04/05/18 08:37 04/05/18 08:37 04/05/18 08:37 - Medications Medications: Current Medications Acetaminophen (Tylenol 325mg Tab) 650 mg PO Q6 PRN PRN Reason: Fever >100.4 F Acetaminophen (Tylenol 325mg Tab) 650 mg PO Q6 PRN PRN Reason: Pain, Mild (1-3) Vancomycin HCl 1 gm/ Sodium (Chloride) 250 mls @ 125 mls/hr IVPB Q8H GREG; Pro tocol Last Admin: 04/05/18 05:28 Dose: 125 mls/hr Ibuprofen (Motrin Tab) 600 mg PO Q6 PRN PRN Reason: Pain, moderate (4-7) Ketorolac Tromethamine (Toradol) 30 mg IVP Q6 PRN PRN Reason: Pain, severe (8-10) Nicotine (Nicoderm Cq) 1 patch TD DAILY [facility] Last Admin: 04/05/18 08:55 Dose: 1 patch - Labs Labs: 04/05/18 05:20 04/05/18 05:20 - Constitutional Appears: Well - Head Exam Head Exam: ATRAUMATIC, NORMAL INSPECTION, NORMOCEPHALIC - Eye Exam Eye Exam: EOMI, Normal appearance, PERRL Pupil Exam: NORMAL ACCOMODATION, PERRL - ENT Exam ENT Exam: Mucous Membranes Moist, Normal Exam - Neck Exam Neck Exam: Full ROM, Normal Inspection. absent: Lymphadenopathy - Respiratory Exam Respiratory Exam: Clear to Ausculation Bilateral, NORMAL BREATHING PATTERN - Cardiovascular Exam Cardiovascular Exam: REGULAR RHYTHM, +S1, +S2. absent: Murmur - GI/Abdominal Exam GI & Abdominal Exam: Soft, Normal Bowel Sounds. absent: Tenderness - Rectal Exam Rectal Exam: NORMAL INSPECTION - Extremities Exam Extremities Exam: Full ROM, Normal Capillary Refill, Tenderness. absent: Joint Swelling, Normal Inspection, Pedal Edema Additional comments: + drainage knee - Back Exam Back Exam: NORMAL INSPECTION - Neurological Exam Neurological Exam: Alert, Awake, CN II-XII Intact, Normal Gait, Oriented x3 - Psychiatric Exam Psychiatric exam: Normal Affect, Normal Mood - Skin Skin Exam: Dry, Intact, Normal Color, Warm Assessment and Plan (1) Cellulitis of right leg Status: Acute - Assessment and Plan (Free Text) Assessment: possible OM right knee cont IV rx will likely need 6 weeks IV rx
--- NOTE | 2018-04-05 16:19 | CP.PCM.PN ---
<Devyn Paul - Last Filed: 04/05/18 16:16> Subjective - Date & Time of Evaluation Date of Evaluation: 04/05/18 Time of Evaluation: 10:50 - Subjective Subjective: 38 y/o M was seen and examined by bedside with Dr Duffy. Pt reports feeling well, left knee is painful with extension. As per pt, LLE redness and swelling have decreased. Pt afebrile, tolerating PO with no acute events overnight Objective - Vital Signs/Intake and Output Vital Signs (last 24 hours): Temp Pulse Resp BP Pulse Ox 98.1 F 114 H 20 124/83 100 04/05/18 08:37 04/05/18 08:37 04/05/18 08:37 04/05/18 08:37 04/05/18 08:37 - Medications Medications: Current Medications Acetaminophen (Tylenol 325mg Tab) 650 mg PO Q6 PRN PRN Reason: Fever >100.4 F Acetaminophen (Tylenol 325mg Tab) 650 mg PO Q6 PRN PRN Reason: Pain, Mild (1-3) Vancomycin HCl 1 gm/ Sodium (Chloride) 250 mls @ 125 mls/hr IVPB Q8H [facility]; Protocol Last Admin: 04/05/18 05:28 Dose: 125 mls/hr Ibuprofen (Motrin Tab) 600 mg PO Q6 PRN PRN Reason: Pain, moderate (4-7) Ketorolac Tromethamine (Toradol) 30 mg IVP Q6 PRN PRN Reason: Pain, severe (8-10) Nicotine (Nicoderm Cq) 1 patch TD DAILY [facility] Last Admin: 04/05/18 08:55 Dose: 1 patch - Labs Labs: 04/05/18 05:20 04/05/18 05:20 - Constitutional Appears: Well - Head Exam Head Exam: absent: NORMAL INSPECTION - Eye Exam Eye Exam: EOMI, Normal appearance - ENT Exam ENT Exam: Mucous Membranes Moist - Neck Exam Neck Exam: Full ROM, Normal Inspection. absent: Meningismus - Respiratory Exam Respiratory Exam: Clear to Ausculation Bilateral, NORMAL BREATHING PATTERN. absent: Wheezes, Respiratory Distress - Cardiovascular Exam Cardiovascular Exam: REGULAR RHYTHM, +S1, +S2 - GI/Abdominal Exam GI & Abdominal Exam: Soft. absent: Guarding, Tenderness - Extremities Exam Extremities Exam: Full ROM. absent: Calf Tenderness Additional comments: Presence of a mildly tender ~2cm diameter open wound with yellowish discharge on R knee, erythema is less pronounced around right foot. Assessment and Plan - Assessment and Plan (Free Text) Assessment: 38 y/o M is admitted for evaluation and management of R knee abscess and R lower leg cellulitis. -Wound Culture growing MRSA PLAN: --Stable, WBC still elevated --On IV Vancomycin 1gr Q8H. --MRI of Knee showed concern for osteomyelitis. --ID on board, Dr Sanders. --Orthopedic Surgery, Dr Sanchez. --Wound care ordered. --Consult to plastic surgery as per ortho-surgery --Management as ordered. Case discussed with Dr Clive Alcazar, PGY-2 <Diego Duffy - Last Filed: 04/09/18 07:37> Objective - Vital Signs/Intake and Output Vital Signs (last 24 hours): Temp Pulse Resp BP Pulse Ox 97.6 F 97 H 20 121/87 100 04/09/18 01:03 04/09/18 01:03 04/09/18 01:03 04/09/18 01:03 04/09/18 01:03 - Medications Medications: Current Medications Acetaminophen (Tylenol 325mg Tab) 650 mg PO Q6 PRN PRN Reason: Fever >100.4 F Acetaminophen (Tylenol 325mg Tab) 650 mg PO Q6 PRN PRN Reason: Pain, Mild (1-3) Vancomycin HCl 1 gm/ Sodium (Chloride) 250 mls @ 125 mls/hr IVPB Q8H [facility]; P rotocol Last Admin: 04/09/18 03:34 Dose: 125 mls/hr Ibuprofen (Motrin Tab) 600 mg PO Q6 PRN PRN Reason: Pain, moderate (4-7) Ketorolac Tromethamine (Toradol) 30 mg IVP Q6 PRN PRN Reason: Pain, severe (8-10) Nicotine (Nicoderm Cq) 1 patch TD DAILY [facility] Last Admin: 04/08/18 09:00 Dose: 1 patch - Labs Labs: 04/08/18 10:24 04/08/18 10:24 Assessment and Plan (1) Abscess of right knee Status: Acute (2) Osteomyelitis of right tibia Status: Acute (3) Cellulitis of right leg Status: Resolved - Assessment and Plan (Free Text) Plan: I was present during evaluation and discussed with Dr Paul re managemnt and plans of treatment. Diego Duffy M.D.
--- NOTE | 2018-04-07 13:54 | CP.PCM.PN ---
Subjective - Date & Time of Evaluation Date of Evaluation: 04/07/18 Time of Evaluation: 08:00 - Subjective Subjective: MRI SHOWS OM OF TIBIAL PLATEAU WIOUND HEALING FOR D/C ON IV RX Objective - Vital Signs/Intake and Output Vital Signs (last 24 hours): Temp Pulse Resp BP Pulse Ox 98.4 F 101 H 20 138/83 100 04/07/18 08:07 04/07/18 08:07 04/07/18 08:07 04/07/18 08:07 04/07/18 08:07 - Medications Medications: Current Medications Acetaminophen (Tylenol 325mg Tab) 650 mg PO Q6 PRN PRN Reason: Fever >100.4 F Acetaminophen (Tylenol 325mg Tab) 650 mg PO Q6 PRN PRN Reason: Pain, Mild (1-3) Vancomycin HCl 1 gm/ Sodium (Chloride) 250 mls @ 125 mls/hr IVPB Q8H [facility]; Protocol Last Admin: 04/07/18 11:26 Dose: 125 mls/hr Ibuprofen (Motrin Tab) 600 mg PO Q6 PRN PRN Reason: Pain, moderate (4-7) Ketorolac Tromethamine (Toradol) 30 mg IVP Q6 PRN PRN Reason: Pain, severe (8-10) Nicotine (Nicoderm Cq) 1 patch TD DAILY [facility] Last Admin: 04/07/18 09:07 Dose: 1 patch - Labs Labs: 04/05/18 05:20 04/05/18 05:20 - Constitutional Appears: Non-toxic, Chronically Ill - Head Exam Head Exam: NORMOCEPHALIC - Eye Exam Eye Exam: absent: Scleral icterus - ENT Exam ENT Exam: Mucous Membranes Dry - Neck Exam Neck Exam: absent: Lymphadenopathy - Respiratory Exam Respiratory Exam: Decreased Breath Sounds - Cardiovascular Exam Cardiovascular Exam: REGULAR RHYTHM - GI/Abdominal Exam GI & Abdominal Exam: Distended, Soft - Rectal Exam Rectal Exam: Deferred - Exam Exam: NORMAL INSPECTION Assessment and Plan (1) Cellulitis of right leg Status: Acute - Assessment and Plan (Free Text) Assessment: D/C ON IV RX FOR TOTAL 6 WEEKS CONSIDER TELEVANCIN
[2018-04-08 10:37] LABS: HEMOGLOBIN 14.8 g/dL (12.0-18.0); MEAN CORPUSCULAR HEMOGLOBIN 30.3 pg (27.0-31.0); MEAN CORPUSCULAR HGB CONC 32.9 g/dL (33.0-37.0); RBC 4.9 Mil/uL (4.40-5.90); RED CELL DISTRIBUTION WIDTH 12.8 % (11.5-14.5)
[2018-04-08 10:48] LABS: ALB/GLOB RATIO 1.1 (1.0-2.1); ALBUMIN 4.7 g/dL (3.5-5.0); ALT/SGPT 45 U/L (21-72); AST/SGOT 41 U/L (17-59); BLOOD UREA NITROGEN 11 mg/dl (9-20); CALCIUM 9.4 mg/dL (8.4-10.2); GFR NON-AFRICAN AMERICAN > 60
--- NOTE | 2018-04-08 13:41 | CP.PCM.PN ---
Subjective - Date & Time of Evaluation Date of Evaluation: 04/08/18 Time of Evaluation: 10:00 - Subjective Subjective: IV rx in progress will need long course rx Objective - Vital Signs/Intake and Output Vital Signs (last 24 hours): Temp Pulse Resp BP Pulse Ox 97.7 F 94 H 19 153/99 H 99 04/08/18 08:55 04/08/18 08:55 04/08/18 08:55 04/08/18 08:55 04/08/18 08:55 - Medications Medications: Current Medications Acetaminophen (Tylenol 325mg Tab) 650 mg PO Q6 PRN PRN Reason: Fever >100.4 F Acetaminophen (Tylenol 325mg Tab) 650 mg PO Q6 PRN PRN Reason: Pain, Mild (1-3) Vancomycin HCl 1 gm/ Sodium (Chloride) 250 mls @ 125 mls/hr IVPB Q8H [facility]; Protocol Last Admin: 04/08/18 10:43 Dose: 125 mls/hr Ibuprofen (Motrin Tab) 600 mg PO Q6 PRN PRN Reason: Pain, moderate (4-7) Ketorolac Tromethamine (Toradol) 30 mg IVP Q6 PRN PRN Reason: Pain, severe (8-10) Nicotine (Nicoderm Cq) 1 patch TD DAILY [facility] Last Admin: 04/08/18 09:00 Dose: 1 patch - Labs Labs: 04/08/18 10:24 04/08/18 10:24 Assessment and Plan (1) Cellulitis of right leg Status: Acute
--- NOTE | 2018-04-08 15:06 | CP.PCM.PN ---
Subjective - Date & Time of Evaluation Date of Evaluation: 04/08/18 Time of Evaluation: 15:03 - Subjective Subjective: Patient states he is able to move his knee without pain now. He says it feels much better. No new complaints. Review of Systems - Review of Systems All systems: reviewed and no additional remarkable complaints except - Musculoskeletal Musculoskeletal: As Par HPI Objective - Vital Signs/Intake and Output Vital Signs (last 24 hours): Temp Pulse Resp BP Pulse Ox 97.7 F 94 H 19 153/99 H 99 04/08/18 08:55 04/08/18 08:55 04/08/18 08:55 04/08/18 08:55 04/08/18 08:55 - Medications Medications: Current Medications Acetaminophen (Tylenol 325mg Tab) 650 mg PO Q6 PRN PRN Reason: Fever >100.4 F Acetaminophen (Tylenol 325mg Tab) 650 mg PO Q6 PRN PRN Reason: Pain, Mild (1-3) Vancomycin HCl 1 gm/ Sodium (Chloride) 250 mls @ 125 mls/hr IVPB Q8H [facility]; Protocol Last Admin: 04/08/18 10:43 Dose: 125 mls/hr Ibuprofen (Motrin Tab) 600 mg PO Q6 PRN PRN Reason: Pain, moderate (4-7) Ketorolac Tromethamine (Toradol) 30 mg IVP Q6 PRN PRN Reason: Pain, severe (8-10) Nicotine (Nicoderm Cq) 1 patch TD DAILY [facility] Last Admin: 04/08/18 09:00 Dose: 1 patch - Labs Labs: 04/08/18 10:24 04/08/18 10:24 - Constitutional Appears: Well, No Acute Distress - Head Exam Head Exam: ATRAUMATIC - Respiratory Exam Respiratory Exam: NORMAL BREATHING PATTERN - Cardiovascular Exam Additional comments: +DP/PT pules - Extremities Exam Additional comments: Right knee: wound scant serous drainage on dressing. healing very well. Entire wound bed granulating, still 2x2cm. No surrounding erythema. No pus, no odor. No cellulitis. Full AROM of knee without pain. No joint effusion. Assessment and Plan (1) Abscess of right knee Assessment & Plan: spontaneously drained no collection noted at this time wound healing well, local wound care, keep clean, dry, and covered antibiotics per Dr. caputo, evidence of OM on MRI, for PICC today no orthopedic intervention indicated local wound care f/u as outpatient Dr. Sanchez d/w Dr. Sanchez, agrees with above Status: Acute (2) Cellulitis of right leg Status: Resolved (3) Osteomyelitis of right tibia Status: Acute
--- NOTE | 2018-04-08 15:23 | RAD ---
Date of service: 04/08/2018 HISTORY: PICC Insertion COMPARISON: No prior. FINDINGS: LUNGS: No active pulmonary disease. PLEURA: No significant pleural effusion identified, no pneumothorax apparent. CARDIOVASCULAR: No atherosclerotic calcification present PICC line in satisfactory position the tip is approximately 5 cm from the cavoatrial junction. OSSEOUS STRUCTURES: No significant abnormalities. VISUALIZED UPPER ABDOMEN: Normal. OTHER FINDINGS: None. IMPRESSION: Satisfactory position of recently placed PICC line. No pneumothorax.
[2018-04-09 01:03] VITALS: BP 121/87; PULSE 97; RESP 20; TEMP 97.6; O2SAT 100
--- NOTE | 2018-04-09 07:30 | CP.PCM.PN ---
Subjective - Date & Time of Evaluation Date of Evaluation: 04/06/18 Time of Evaluation: 16:00 - Subjective Subjective: Patient remains stable ON Iv antibiotics Noted some improvement of redness around wound area. Has no fever. Objective - Vital Signs/Intake and Output Vital Signs (last 24 hours): Temp Pulse Resp BP Pulse Ox 97.6 F 97 H 20 121/87 100 04/09/18 01:03 04/09/18 01:03 04/09/18 01:03 04/09/18 01:03 04/09/18 01:03 - Medications Medications: Current Medications Acetaminophen (Tylenol 325mg Tab) 650 mg PO Q6 PRN PRN Reason: Fever >100.4 F Acetaminophen (Tylenol 325mg Tab) 650 mg PO Q6 PRN PRN Reason: Pain, Mild (1-3) Vancomycin HCl 1 gm/ Sodium (Chloride) 250 mls @ 125 mls/hr IVPB Q8H [facility]; Protocol Last Admin: 04/09/18 03:34 Dose: 125 mls/hr Ibuprofen (Motrin Tab) 600 mg PO Q6 PRN PRN Reason: Pain, moderate (4-7) Ketorolac Tromethamine (Toradol) 30 mg IVP Q6 PRN PRN Reason: Pain, severe (8-10) Nicotine (Nicoderm Cq) 1 patch TD DAILY [facility] Last Admin: 04/08/18 09:00 Dose: 1 patch - Labs Labs: 04/08/18 10:24 04/08/18 10:24 - Head Exam Head Exam: NORMAL INSPECTION - Eye Exam Eye Exam: Normal appearance - ENT Exam ENT Exam: Mucous Membranes Moist - Respiratory Exam Respiratory Exam: Clear to Ausculation Bilateral - Cardiovascular Exam Cardiovascular Exam: REGULAR RHYTHM - GI/Abdominal Exam GI & Abdominal Exam: Normal Bowel Sounds - Neurological Exam Neurological Exam: Awake, Oriented x3 Assessment and Plan (1) Abscess of right knee Status: Acute (2) Osteomyelitis of right tibia Status: Acute (3) Cellulitis of right leg Status: Resolved - Assessment and Plan (Free Text) Plan: Cont meds Cont IV anrtibiotics cont wound care
--- NOTE | 2018-04-09 07:32 | CP.PCM.PN ---
Subjective - Date & Time of Evaluation Date of Evaluation: 04/07/18 Time of Evaluation: 11:00 - Subjective Subjective: Patient remains well Has no chest pain or SOB Afenbrile Objective - Vital Signs/Intake and Output Vital Signs (last 24 hours): Temp Pulse Resp BP Pulse Ox 97.6 F 97 H 20 121/87 100 04/09/18 01:03 04/09/18 01:03 04/09/18 01:03 04/09/18 01:03 04/09/18 01:03 - Medications Medications: Current Medications Acetaminophen (Tylenol 325mg Tab) 650 mg PO Q6 PRN PRN Reason: Fever >100.4 F Acetaminophen (Tylenol 325mg Tab) 650 mg PO Q6 PRN PRN Reason: Pain, Mild (1-3) Vancomycin HCl 1 gm/ Sodium (Chloride) 250 mls @ 125 mls/hr IVPB Q8H [facility]; Protocol Last Admin: 04/09/18 03:34 Dose: 125 mls/hr Ibuprofen (Motrin Tab) 600 mg PO Q6 PRN PRN Reason: Pain, moderate (4-7) Ketorolac Tromethamine (Toradol) 30 mg IVP Q6 PRN PRN Reason: Pain, severe (8-10) Nicotine (Nicoderm Cq) 1 patch TD DAILY [facility] Last Admin: 04/08/18 09:00 Dose: 1 patch - Labs Labs: 04/08/18 10:24 04/08/18 10:24 - Head Exam Head Exam: NORMAL INSPECTION - Eye Exam Eye Exam: Normal appearance - ENT Exam ENT Exam: Mucous Membranes Moist - Respiratory Exam Respiratory Exam: Clear to Ausculation Bilateral - Cardiovascular Exam Cardiovascular Exam: REGULAR RHYTHM - GI/Abdominal Exam GI & Abdominal Exam: Normal Bowel Sounds - Skin Additional comments: decreased redness around knee wound Assessment and Plan (1) Abscess of right knee Status: Acute (2) Osteomyelitis of right tibia Status: Acute (3) Cellulitis of right leg Status: Resolved - Assessment and Plan (Free Text) Plan: Cont meds cont iv antibiotics will discuss with ID re prolonged iv antibiotics
--- NOTE | 2018-04-09 07:34 | CP.PCM.PN ---
Subjective - Date & Time of Evaluation Date of Evaluation: 04/08/18 Time of Evaluation: 11:00 - Subjective Subjective: patient continues to do well Has no chest pain or SOB Afebrile On iv antibiotics Discussed with Dr Sanders and patient will need PICC line and 6 weeks of iv antibiotics. Objective - Vital Signs/Intake and Output Vital Signs (last 24 hours): Temp Pulse Resp BP Pulse Ox 97.6 F 97 H 20 121/87 100 04/09/18 01:03 04/09/18 01:03 04/09/18 01:03 04/09/18 01:03 04/09/18 01:03 - Medications Medications: Current Medications Acetaminophen (Tylenol 325mg Tab) 650 mg PO Q6 PRN PRN Reason: Fever >100.4 F Acetaminophen (Tylenol 325mg Tab) 650 mg PO Q6 PRN PRN Reason: Pain, Mild (1-3) Vancomycin HCl 1 gm/ Sodium (Chloride) 250 mls @ 125 mls/hr IVPB Q8H [facility]; Protocol Last Admin: 04/09/18 03:34 Dose: 125 mls/hr Ibuprofen (Motrin Tab) 600 mg PO Q6 PRN PRN Reason: Pain, moderate (4-7) Ketorolac Tromethamine (Toradol) 30 mg IVP Q6 PRN PRN Reason: Pain, severe (8-10) Nicotine (Nicoderm Cq) 1 patch TD DAILY [facility] Last Admin: 04/08/18 09:00 Dose: 1 patch - Labs Labs: 04/08/18 10:24 04/08/18 10:24 - Head Exam Head Exam: NORMAL INSPECTION - Eye Exam Eye Exam: Normal appearance - ENT Exam ENT Exam: Mucous Membranes Moist - Respiratory Exam Respiratory Exam: Clear to Ausculation Bilateral - Cardiovascular Exam Cardiovascular Exam: REGULAR RHYTHM - GI/Abdominal Exam GI & Abdominal Exam: Normal Bowel Sounds - Neurological Exam Neurological Exam: Awake, Oriented x3 - Skin Additional comments: resolving cellulitis right knee Assessment and Plan (1) Abscess of right knee Status: Acute (2) Osteomyelitis of right tibia Status: Acute (3) Cellulitis of right leg Status: Resolved - Assessment and Plan (Free Text) Plan: Cont meds Cont tx Cont iv antibiotics
--- NOTE | 2018-04-09 15:45 | CP.PCM.PN ---
Subjective - Date & Time of Evaluation Date of Evaluation: 04/09/18 Time of Evaluation: 14:00 - Subjective Subjective: Patient seen and examined at bedside. Pain well improved since yesterday. Offers no new complaints. Denies CP/SOB/AGARWAL/fever. Objective - Vital Signs/Intake and Output Vital Signs (last 24 hours): Temp Pulse Resp BP Pulse Ox 97.6 F 97 H 20 121/87 100 04/09/18 01:03 04/09/18 01:03 04/09/18 01:03 04/09/18 01:03 04/09/18 01:03 - Medications Medications: Current Medications Acetaminophen (Tylenol 325mg Tab) 650 mg PO Q6 PRN PRN Reason: Fever >100.4 F Acetaminophen (Tylenol 325mg Tab) 650 mg PO Q6 PRN PRN Reason: Pain, Mild (1-3) Vancomycin HCl 1 gm/ Sodium (Chloride) 250 mls @ 125 mls/hr IVPB Q8H [facility]; Protocol Last Admin: 04/09/18 11:50 Dose: 125 mls/hr Ibuprofen (Motrin Tab) 600 mg PO Q6 PRN PRN Reason: Pain, moderate (4-7) Ketorolac Tromethamine (Toradol) 30 mg IVP Q6 PRN PRN Reason: Pain, severe (8-10) Nicotine (Nicoderm Cq) 1 patch TD DAILY [facility] Last Admin: 04/09/18 08:50 Dose: 1 patch - Labs Labs: 04/08/18 10:24 04/08/18 10:24 - Extremities Exam Additional comments: R knee: Dressing intact with minimal serosang drainage wound 2x2cm with granulation, no pus, no erythema sensation intact SP/DP/TN motor intact EHL/FHL/TA/G pedal pulses intact calves soft NT Assessment and Plan (1) Abscess of right knee Assessment & Plan: -continue local wound care, keep clean, dry, and covered -antibiotics per Dr. caputo -orthopedically stable -f/u as outpatient Dr. Sanchez -above d/w Dr. Sanchez in agreement Status: Acute
== END 2018-04-09 16:30 | disposition left against medical advice (07) | DRG 383 ==
LOC: H.ER 17:15 → H.ERHOLD 19:59 → H.MEDSURG1 04-02 22:24
PROVIDERS: ADMIT Family Medicine; ATTEND Family Medicine
PROC: 3E02340 Introduction of Influenza Vaccine into Muscle, Percutaneous Approach (ICD-10-PCS; principal; 2018-04-03)
PROC: 3E0234Z Introduction of Serum, Toxoid and Vaccine into Muscle, Percutaneous Approach (ICD-10-PCS; 2018-04-03)
DX: L03.115 Cellulitis of right lower limb (principal); M86.161 Other acute osteomyelitis, right tibia and fibula; B95.62 Methicillin resistant Staphylococcus aureus infection as the cause of diseases classified elsewhere; L02.415 Cutaneous abscess of right lower limb; W57.XXXA Bitten or stung by nonvenomous insect and other nonvenomous arthropods, initial encounter; F17.210 Nicotine dependence, cigarettes, uncomplicated; M25.461 Effusion, right knee; Z23 Encounter for immunization; S80.261A Insect bite (nonvenomous), right knee, initial encounter; Z98.82 Breast implant status